=== PATIENT | female | born 1935 | race Caucasian/White ===

== ENCOUNTER 2018-05-12 01:40 | Inpatient (IN) | payer OTHER, MEDICARE ==
[~2018-05-12] VITALS: Ht 162.6 cm; Wt 78.5 kg
[2018-05-12] VITALS (24 sets, daily range): BP systolic 91–142; BP diastolic 42–72
--- NOTE | 2018-05-12 02:00 | NUR ---
81 YO female bib ra from home. patient is alert and oriented, patient is arminian speaking. Per EMS, patient was complaining of shortness of breath, son called 911. patient was ds to er bed, skin warm and dry, resp even and unlabored. patient gowned, placed on director of cardiac cath lab. awaiting orders from provider, will continue to monitor
--- NOTE | 2018-05-12 02:05 | NUR ---
20g right ac iv started, blood sample obtained and sent to lab
[2018-05-12] MEDS ORDERED: FUROSEMIDE 40 MG/4 ML VIAL ONE (02:13)
[2018-05-12] MEDS ORDERED: methylPREDNISolone SOD SUCC 125 MG/2ML VIAL ONE (02:13)
[2018-05-12] MEDS ORDERED: NITROGLYCERIN PACKET 1 GM PACKET ONE ×2 (02:14→02:17)
[2018-05-12] MEDS ORDERED: ASPIRIN 81 MG TAB.CHEW ONE (02:14)
[2018-05-12] MEDS ORDERED: IPRATROPIUM NEB FS 0.5 MG/2.5 ML AMPUL.NEB ONE (02:16)
[2018-05-12] MEDS ORDERED: ALBUTEROL FS 2.5 MG/3 ML VIAL.NEB ONE (02:16)
[2018-05-12 02:17] LABS: BASOPHILS % (AUTO) 0.4 % (0.0-2.0); EOSINOPHILS % (AUTO) 2.1 % (0.0-6.0); HEMATOCRIT 33 % (33-45); HEMOGLOBIN 10.8 g/dL (11.5-14.8); LYMPHOCYTES # (AUTO) 3.5 /CMM (0.8-4.8); LYMPHOCYTES % (AUTO) 34.6 % (20.0-44.0); MEAN CORPUSCULAR HEMOGLOBIN 29 PG (26.0-33.0); MEAN CORPUSCULAR HGB CONC 33 g/dl (31.0-36.0); MEAN CORPUSCULAR VOLUME 88 fL (82-100); MONOCYTES # (AUTO) 0.6 /CMM (0.1-1.30); MONOCYTES % (AUTO) 6.2 % (2.0-12.0); NEUTROPHILS # (AUTO) 5.8 /CMM (1.8-8.9); NEUTROPHILS % (AUTO) 56.7 % (43.0-81.0); PLATELET COUNT (AUTO) 328 /CMM (150-450); RDW COEFFICIENT OF VARIATION 17.5 (11.5-15.0); RED BLOOD CELL COUNT(AUTO) 3.76 MIL/uL (4.0-5.2); WHITE BLOOD COUNT (AUTO) 10.3 K/uL (4.3-11.0)
[2018-05-12] MEDS ORDERED: ATOR40TA PO (02:20)
[2018-05-12] MEDS ORDERED: LINA72CA PO (02:20)
[2018-05-12] MEDS ORDERED: ACET-907 PO (02:20)
[2018-05-12] MEDS ORDERED: CHOL20004 PO (02:20)
[2018-05-12] MEDS ORDERED: GABA-532 PO (02:20)
[2018-05-12] MEDS ORDERED: ASPI-1152 PO (02:20)
[2018-05-12] MEDS ORDERED: CLON0.5T12 PO (02:20)
[2018-05-12] MEDS ORDERED: CLOP75TA15 PO (02:20)
[2018-05-12] MEDS ORDERED: IBUP-1953 PO (02:25)
[2018-05-12] MEDS ORDERED: TEMA15CA PO (02:25)
[2018-05-12] MEDS ORDERED: FAMO20TA8 PO (02:25)
[2018-05-12] MEDS ORDERED: ALBUTEROL FS 2.5 MG/3 ML VIAL.NEB NEB ONE (02:30)
[2018-05-12] MEDS ORDERED: ASPIRIN 81 MG TAB.CHEW PO ONE (02:30)
[2018-05-12] MEDS ORDERED: IPRATROPIUM NEB FS 0.5 MG/2.5 ML AMPUL.NEB NEB ONE (02:30)
[2018-05-12] MEDS ORDERED: methylPREDNISolone SOD SUCC 125 MG/2ML VIAL IV ONE (02:30)
[2018-05-12] MEDS ORDERED: NITROGLYCERIN PACKET 1 GM PACKET TD ONE (02:30)
[2018-05-12] MEDS ORDERED: FUROSEMIDE 40 MG/4 ML VIAL IV ONE ×2 (02:30→11:13)
[2018-05-12 02:35] LABS: CARBON DIOXIDE 19 mmol/L (21-32); CHLORIDE 106 mmol/L (98-107); CREATININE 1.2 mg/dL (0.6-1.3); GLUCOSE 144 mg/dL (74-106); POTASSIUM 3.5 mmol/L (3.5-5.1); SODIUM SERUM 139 mmol/L (136-145); UREA NITROGEN, BLOOD 24 mg/dL (7-18)
[2018-05-12 02:46] LABS: ABG BASE EXCESS -5.5 mmol/L; ABG OXYGEN SATURATION 96.5 % (92.0-98.5); ABG PCO2 29.5 mmHg (35.0-45.0); ABG PH 7.406 (7.350-7.450); ABG PO2 94.8 mmHg (75.0-100.0); AaDO2 242.9 mmHg; COHb 0.1 % (0.5-1.5); MetHb 0.4 % (0.0-1.5); SITE, ABG Right Radial; VENT MODE, BG Simple Mask
[2018-05-12 02:49] LABS: ALANINE AMINOTRANSFERASE 22 U/L (12-78); ALBUMIN 3.2 g/dL (3.4-5.0); ALKALINE PHOSPHATASE 93 U/L (46-116); ASPARTATE AMINOTRANSFERASE 37 U/L (15-37); B-TYPE NATRIURETIC PEPTIDE 3384 PG/ML (0-125); BILIRUBIN,DIRECT 0.1 mg/dL (0.0-0.2); BILIRUBIN,TOTAL 0.4 mg/dL (0.2-1.0); TOTAL PROTEIN, SERUM 8.6 g/dL (6.4-8.2)
[2018-05-12 03:06] LABS: D-DIMER 1.92 mg/L(FEU (0.17-0.50); INR 0.94 (0.87-1.13)
[2018-05-12] MEDS ORDERED: ONDANSETRON HCL/PF - ER 4 MG/2 ML VIAL IV ONE (03:30)
[2018-05-12] MEDS ORDERED: ENOXAPARIN SODIUM 60 MG/0.6 ML DISP.SYRIN SQ ONE (03:30)
[2018-05-12] MEDS ORDERED: HYDROCODONE/APAP 5/325MG 1 EACH TABLET PO ONE (03:30)
[2018-05-12] MEDS ORDERED: ENOXAPARIN SODIUM 80 MG/0.8 ML DISP.SYRIN SQ ONE (04:03)
[2018-05-12] MEDS ORDERED: ONDANSETRON HCL/PF 4 MG/2 ML VIAL ONE (04:03)
[2018-05-12] MEDS ORDERED: HYDROCODONE/APAP 5/325MG 1 EACH TABLET ONE (04:03)
--- NOTE | 2018-05-12 04:22 | NUR ---
TRANSPORTED PT TO [facility] BED WITH EMT WITHOUT INCIDENT
--- NOTE | 2018-05-12 04:24 | NUR ---
SMASHER NOTES RECEIVED PATIENT FROM ER VIA [facility]. PATIENT IS AWAKE, ALERT AND ORIENTED X3 TO NAME, BIRTHDATE, AND SITUATION, ABLE TO VERBALIZE ALL NEEDS. PATIENT IS YAKUT SPEAKING, YAKUT SPEAKING STAFF AT BEDSIDE FOR TRANSLATION. BREATHING EVEN AND NONLABORED, TOLERATING O2 VIA NC @ 4LPM WELL, NO S/S OF RESPIRATORY DISTRESS NOTED. PATIENT DENIES ANY CHEST PAIN AT THIS TIME, SYMPTOMS HAVE RESOLVED AFTER MEDICATION RECEIVED FROM ER. PATIENT PLACED ON TELEMETRY MONITORING, SHOWING SINUS RHYTHM WITH 1ST DEGREE AV BLOCK, HR = 72 AT THIS TIME. IV SITE PATENT AND INTACT, FLUSHED WITH NS, FREE FROM ANY S/S OF INFILTRATION OR PHLEBITIS. SKIN ISSUES PHOTOGRAPHED AND DOCUMENTED PER PROTOCOL. TOBIN CATHETER DRAINING CLEAR YELLOW URINE TO GRAVITY. PLAN OF CARE DISCUSSED WITH THE PATIENT, WHO VERBALIZES UNDERSTANDING REGARDING THE PLAN OF CARE. CALL LIGHT LEFT WITHIN EASY REACH, BED IN LOWEST AND LOCKED POSITION. WILL CONTINUE TO CLOSELY MONITOR
[2018-05-12] MEDS ORDERED: ACETAMINOPHEN 325 MG TABLET PO PRN (04:30)
[2018-05-12] MEDS ORDERED: ONDANSETRON HCL/PF 4 MG/2 ML VIAL IVP PRN (04:30)
[2018-05-12] MEDS ORDERED: HYDROCODONE/APAP 5/325MG 1 EACH TABLET PO PRN (04:30)
[2018-05-12] MEDS ORDERED: ZOLPIDEM TARTRATE 5 MG TABLET PO PRN (04:30)
[2018-05-12] MEDS ORDERED: Z GUARD REMEDY 2 OZ OINT TP PRN (04:30)
[2018-05-12] MEDS ORDERED: MAGNESIUM HYDROXIDE 30 ML UDC PO PRN (04:30)
[2018-05-12] MEDS ORDERED: DEXTROSE 50%-WATER 50 ML DISP.SYRIN IV PRN (04:30)
--- NOTE | 2018-05-12 07:00 | NUR ---
RN NOTES RECEIVED LYING IN BED, HOB AT 30 DEGREE, AWAKE AND ORIENTED, NO COMPLAINTS OF PAIN, NOT ON ANY FORM OF DISTRESS, ON NASAL CANNULA AT 4 LPM, NO SOB NOTED, SINUS RHYTHM ON TELE, HR ON 80S, GAUGE 20 IV LINE ON THE RIGHT AC: INTACT, TOBIN CATHETER DRAINING WELL VIA GRAVITY TO CLEAR URINE, CALL LIGHT WITHIN EASY REACH, BED IS LOCKED AND AT LOWEST POSITION, WILL CONTINUE TO MONITOR
[2018-05-12] MEDS: BLOOD SUGAR DIAGNOSTIC 1 EACH STRIP IN SCH ×4 (08:22→21:29)
[2018-05-12] MEDS: ENOXAPARIN SODIUM 80 MG/0.8 ML DISP.SYRIN SQ SCH ×2 (08:24→21:14)
[2018-05-12] MEDS: INSULIN REGULAR, HUMAN 100 UNIT/ML 3 ML VIAL SQ PRN ×2 (08:24→21:30)
[2018-05-12 08:47] LABS: BASOPHILS % (AUTO) 0.1 % (0.0-2.0); EOSINOPHILS % (AUTO) 0.2 % (0.0-6.0); HEMATOCRIT 31 % (33-45); HEMOGLOBIN 10.2 g/dL (11.5-14.8); LYMPHOCYTES # (AUTO) 0.6 /CMM (0.8-4.8); LYMPHOCYTES % (AUTO) 7.4 % (20.0-44.0); MEAN CORPUSCULAR HEMOGLOBIN 28 PG (26.0-33.0); MEAN CORPUSCULAR HGB CONC 32 g/dl (31.0-36.0); MEAN CORPUSCULAR VOLUME 87 fL (82-100); MONOCYTES # (AUTO) 0.1 /CMM (0.1-1.30); MONOCYTES % (AUTO) 1.3 % (2.0-12.0); NEUTROPHILS # (AUTO) 6.9 /CMM (1.8-8.9); PLATELET COUNT (AUTO) 292 /CMM (150-450); RDW COEFFICIENT OF VARIATION 17.1 (11.5-15.0); RED BLOOD CELL COUNT(AUTO) 3.58 MIL/uL (4.0-5.2); WHITE BLOOD COUNT (AUTO) 7.6 K/uL (4.3-11.0)
[2018-05-12 09:03] LABS: CALCIUM, SERUM 8.6 mg/dL (8.5-10.1); CARBON DIOXIDE 23 mmol/L (21-32); CHLORIDE 106 mmol/L (98-107); CREATININE 1.3 mg/dL (0.6-1.3); GLUCOSE 162 mg/dL (74-106); POTASSIUM 3.7 mmol/L (3.5-5.1); SODIUM SERUM 141 mmol/L (136-145); UREA NITROGEN, BLOOD 23 mg/dL (7-18)
--- NOTE | 2018-05-12 10:17 | NUR ---
RN NOTES DR DONAHUE NOTIFED REGARDING TROPONIN 30.95 . CONTINUE TO MONITOR .
[2018-05-12] MEDS ORDERED: METOPROLOL TARTRATE INJ 5 MG/5 ML AMPUL IVP ONE (11:00)
[2018-05-12] MEDS: METOPROLOL TARTRATE 50 MG TABLET PO SCH ×3 (11:27→23:58)
[2018-05-12] MEDS: ATORVASTATIN 40 MG TABLET PO SCH (11:29)
[2018-05-12 11:54] LABS: CHOLESTEROL 126 mg/dL (<200); HDL CHOLESTEROL 70 mg/dL (40-60); LDL 50 mg/dL (0-99); TRIGLYCERIDES 42 mg/dL (30-150)
--- NOTE | 2018-05-12 12:20 | NUR ---
RN NOTES BG 154 , PT IS NPO FOR HEART CATH ,
--- NOTE | 2018-05-12 17:43 | NUR ---
RN NOTES DR CURTIS NOTIFED REGARDING TROP =[phone] , CONTINUE TO MONITOR .
[2018-05-12] MEDS ORDERED: NTG 50 MG/D5W250 ML BOTTL 250 ML IV PRN (18:30)
--- NOTE | 2018-05-12 18:35 | NUR ---
RN NOTES PT STILL HAVING CHEST PAIN 03/19 , DR DONAHUE AND SARA NOTIFIED , PT TRANSFER TO ICU PER MD ORDER
--- NOTE | 2018-05-12 19:00 | NUR ---
RN NOTE 183: Received patient from [facility], for Nitro drip and was with c/o 6/10 chest pain. Verbalized very little chest pain right now per son. Understand very little Greek, Togolese speaking, son at bedside for interpretation. Started on 3mic of Nitro, SBP 100's. 1844: Started on Nitro drip 3mcg, removed Nitro patch. 1899: Endorsed to Melva DEWEY for WILDA, placed another PIV on LFA g20. Still with minimal CP. Was just started on Nitro drip.
--- NOTE | 2018-05-12 19:30 | NUR ---
POSTAL SORTING OFFICER: RECEIVED PT. ALERT AND AWAKE. ABLE TO TALK AND MAKE NEEDS KNOWN IN BARBADIAN AND LITTLE MALTESE. SON AT BEDSIDE TO INTERPRET. ON 4L 02 VIA NC WT NO ACUTE DISTRESS. NO C/O CHEST PAIN AT THIS TIME. CONTINUE ON NITRO DRIP AT 3MCG/MIN WT NO S/S OF IV INFILTRATION. AFEBRILE. SR WT FIRST DEGREE HB ON DIRECTOR TRADING. SBP IN LOW 100s. F/C PATENT AND INTACT DRAINING YELLOW COLORED URINE TO GRAVITY. HOB AT 35 DEGREES. SAFETY PRECAUTION NOTED. WILL CONTINUE TO MONITOR.
--- NOTE | 2018-05-12 23:58 | NUR ---
SHEETROCK APPLICATOR: LOPRESSOR HELD AT THIS TIME FOR SBP LESS THAN 105. STILL ON NITRO DRIP AT 3MCG/MIN WT NO C/O CHEST PAIN. WILL CONTINUE TO MONITOR.
[2018-05-13] VITALS (56 sets, daily range): BP systolic 74–137; BP diastolic 40–83
--- NOTE | 2018-05-13 02:15 | NUR ---
LINTER DRIER OPERATOR: NOTED WT 8 BEATS OF V-TACH. CHARGE NURSE REMEDIOS MADE AWARE. REMAINED ASYMPTOMATIC. STILL ON NITRO DRIP AT 3MCG/MIN WT NO C/O PAIN. WILL CONTINUE TO MONITOR.
[2018-05-13 04:22] LABS: BASOPHILS % (AUTO) 0.1 % (0.0-2.0); HEMATOCRIT 29 % (33-45); HEMOGLOBIN 9.3 g/dL (11.5-14.8); LYMPHOCYTES # (AUTO) 1.3 /CMM (0.8-4.8); LYMPHOCYTES % (AUTO) 11.6 % (20.0-44.0); MEAN CORPUSCULAR HEMOGLOBIN 28 PG (26.0-33.0); MEAN CORPUSCULAR HGB CONC 32 g/dl (31.0-36.0); MEAN CORPUSCULAR VOLUME 88 fL (82-100); MONOCYTES # (AUTO) 0.8 /CMM (0.1-1.30); MONOCYTES % (AUTO) 7.1 % (2.0-12.0); NEUTROPHILS # (AUTO) 9.3 /CMM (1.8-8.9); NEUTROPHILS % (AUTO) 81.2 % (43.0-81.0); PLATELET COUNT (AUTO) 273 /CMM (150-450); RDW COEFFICIENT OF VARIATION 17.2 (11.5-15.0); RED BLOOD CELL COUNT(AUTO) 3.27 MIL/uL (4.0-5.2); WHITE BLOOD COUNT (AUTO) 11.5 K/uL (4.3-11.0)
[2018-05-13 04:47] LABS: TROPONIN I 24.885 ng/mL (0.00-0.056)
[2018-05-13 04:57] LABS: ALANINE AMINOTRANSFERASE 34 U/L (12-78); ALBUMIN 2.8 g/dL (3.4-5.0); ALKALINE PHOSPHATASE 71 U/L (46-116); ASPARTATE AMINOTRANSFERASE 133 U/L (15-37); BILIRUBIN,TOTAL 0.3 mg/dL (0.2-1.0); CALCIUM, SERUM 8.1 mg/dL (8.5-10.1); CARBON DIOXIDE 24 mmol/L (21-32); CHLORIDE 105 mmol/L (98-107); CREATININE 1.4 mg/dL (0.6-1.3); GLUCOSE 129 mg/dL (74-106); MAGNESIUM 1.9 mg/dL (1.8-2.4); PHOSPHORUS 4.3 mg/dL (2.5-4.9); SODIUM SERUM 137 mmol/L (136-145); TOTAL PROTEIN, SERUM 7.6 g/dL (6.4-8.2); UREA NITROGEN, BLOOD 34 mg/dL (7-18)
[2018-05-13] MEDS: METOPROLOL TARTRATE 50 MG TABLET PO SCH (05:56)
--- NOTE | 2018-05-13 06:50 | NUR ---
LABORATORY MONITOR: SEEN AND EXAMINED BY DR. DONAHUE AND MADE HIM AWARE OF V-TACH EPISODE (8-BEATS) AT 0215. NOW ON NITRO DRIP AT 10MCG/MIN FOR C/O CHEST PAIN 8 AT 0600. MD PHIPPS ORDER FOR EKG STAT. NOTED AND CARRIED OUT. PT. REMAINED ALERT AND AWAKE. NOW CHEST PAIN LEVEL 3/10. SAFETY PRECAUTION NOTED AT ALL TIMES.
--- NOTE | 2018-05-13 07:15 | NUR ---
PROBATION AGENT NOTES RECEIVED PATIENT AOX2 VIETNAMESE / VENEZUELAN SPEAKING , NOT IN ACUTE DISTRESS , RESPIRATIONS EVEN AND UNLABORED WITH SPO2 OF 100% VIA 4LPM NC , SR WITH 1ST DEGREE AV BLOCK , COMPLAINS OF CHEST PAIN 5/10 ON NITROGLYCERIN DRIP @ 10MCG/MIN INFUSING @ L FA #20 PATENT AND INTACT , RAC # 20 PATENT AND INTACT SL , FC DRAINING VIA GRAVITY , ALL NEEDS ATTENDED , BED ON LOW AND LOCKED POSITION , SIDE RAILS X2 ,CALL LIGHT WITHIN REACH , HOB @ 35 ,WILL CONTINUE TO MONITOR
[2018-05-13] MEDS: BLOOD SUGAR DIAGNOSTIC 1 EACH STRIP IN SCH ×2 (07:33→11:20)
[2018-05-13 07:52] LABS: THYROID STIMULATING HORMONE 0.5 uIU/mL (0.358-3.74)
[2018-05-13] MEDS: ATORVASTATIN 40 MG TABLET PO SCH (09:26)
[2018-05-13] MEDS: ENOXAPARIN SODIUM 80 MG/0.8 ML DISP.SYRIN SQ SCH (09:26)
--- NOTE | 2018-05-13 09:46 | NUR ---
GENERAL LABOR FORKLIFT OPERATOR NOTES CALLED [facility] , SPOKE WITH ADMITTING , F/U PT TRANSFER M PER ADMITTING PT HAS A BED @ [facility] 2ND FLOOR ROOM 200-4 , , CALLED [facility]NA[facility] TO NOTIFY , KENY WILL CALL DR DONAHUE FOR VERIFICATION .
--- NOTE | 2018-05-13 10:05 | NUR ---
SCRUM MASTER NOTES SEEN AND EVALUATED BY DR BUNCH , DISCUSSED LATEST V/S , URINE OUTPUT , PT STILL ON NITROGLYCERIN DRIP @ 6MCG/MIN , PENDING TRANSFER FOR CARDIAC CATH , VERIFIED EKG ORDER DR DONAHUE ORDER ONE THIS MORNING @ 0700 , SHOWED EKG RESULT , AWARE
--- NOTE | 2018-05-13 11:49 | NUR ---
ANIMAL DAMAGE CONTROL AGENT NOTES REPORT GIVEN TO RENEA @ [phone] FOR PT TRANSFER , ALL QUESTIONS ANSWERED ,
--- NOTE | 2018-05-13 11:52 | NUR ---
CNC TECHNICIAN NOTES CALLED [facility] , PAGED JERALD VICENTE TO NOTIFY [facility] , ASKING FOR DC ORDER , AWAITING FOR CALL BACK
[2018-05-13] MEDS ORDERED: METOPROLOL TARTRATE 50 MG TABLET PO SCH (12:00)
--- NOTE | 2018-05-13 12:18 | NUR ---
VISUAL SPECIALIST NOTES BELONGING LIST REVIEWED WITH THE SON , SON AGREES AND SIGNED .
--- NOTE | 2018-05-13 13:30 | NUR ---
SENIOR EDITOR NOTES NO COMPLAINS OF CHEST PAIN AT THIS TIME , PT IS COMFORTABLE RESTING AT BED , WILL CONTINUE TO MONITOR
--- NOTE | 2018-05-13 13:39 | NUR ---
FRAMER NOTES REPORT GIVEN TO EMS AND TO ELISSA MCLEOD RN FOR PT TRANSFER PT STABLE AT THIS TIME , NOT IN ACUTE DISTRESS , RESPIRATIONS EVEN AND UNLABORED WITH SPO2 OF 100% VIA 4LPM NC , AOX3 [place] SRI LANK[place] SPEAKING , SR 78 WITH 1ST DEGREE AV BLOCK , FC DRAINING VIA GRAVITY , IV OF R AC # 20 PATENT AND INTACT WITH NITROGLYCERIN @ 6MCG/MIN INFUSING WELL , L FA # 20 ACCIDENTALLY REMOVED BY THE PT , OFFERED TO INSERT NEW IV LINE BUT PT REFUSES , EXPLAINED THE BENEFITS OF HAVING ANOTHER IV LINE PT STILL REFUSES , SKIN ASSESSMENT DONE NO NEW WOUNDS NOTED , TOOK PICTURES AND PLACED IN THE CHART , EXIT CARE SIGNED EXPLAINED TO SON , ALL NEEDS ATTENDED , VSS ,
[2018-05-13] MEDS ORDERED: ENOX80DI SQ (14:02)
[2018-05-13 17:44] LABS: APPEARANCE,URINE CLOUDY (CLEAR); BILIRUBIN,URINE NEGATIVE (NEGATIVE); BLOOD, URINE 2+ Ery/uL (NEGATIVE); COLOR,URINE YELLOW (YELLOW); KETONES,URINE NEGATIVE (NEGATIVE); LEUKOCYTE ESTERASE ,URINE NEGATIVE (NEGATIVE); NITRITE, URINE NEGATIVE (NEGATIVE); PROTEIN,URINE NEGATIVE (NEGATIVE); UGLUCOSE NEGATIVE (NEGATIVE); UROBILINOGEN,URINE 0.2 EU/dL (0.2)
[2018-05-13 18:14] LABS: CREATININE, URINE 208.1 MG/DL (30.0-125.0)
[2018-05-13 18:16] LABS: BACTERIA,URINE Few /HPF (None Seen); SQUAMOUS EPITHELIAL CELL,UR Few /HPF (None Seen); URINE AMORPHOUS URATE Many /HPF (None Seen); WBC,URINE 0-2 /HPF (0-3)
[2018-05-13 18:46] LABS: EOSINOPHIL,URINE None Seen
== END 2018-05-13 13:40 | disposition short-term general hospital (02) | DRG 190 ==
LOC: EDBD 01:42 → ER 01:42 → TELE-TD 04:03 → TELE1 10:03 → ICU 18:26
PROVIDERS: ADMIT Nurse Practitioner Acute Care; ATTEND Nurse Practitioner Acute Care
DX: I21.4 Non-ST elevation (NSTEMI) myocardial infarction (principal); N17.0 Acute kidney failure with tubular necrosis; I50.23 Acute on chronic systolic (congestive) heart failure; E78.5 Hyperlipidemia, unspecified; D63.8 Anemia in other chronic diseases classified elsewhere; E11.9 Type 2 diabetes mellitus without complications; I11.0 Hypertensive heart disease with heart failure; Z86.73 Personal history of transient ischemic attack (TIA), and cerebral infarction without residual deficits; F41.9 Anxiety disorder, unspecified; K21.9 Gastro-esophageal reflux disease without esophagitis; M19.90 Unspecified osteoarthritis, unspecified site; Z74.01 Bed confinement status; K59.09 Other constipation
CPT/HCPCS: 36415; 36600; 71045-TC; 80048-TC; 80053-TC; 80061-TC; 80076-TC; 81000-TC; 82570-TC; 82728-TC; 82803-TC; 82962-TC; 83540-TC; 83735-TC; 83880; 84100-TC; 84155-TC; 84300-TC; 84439-TC; 84443-TC; 84484-TC; 85025-TC; 85378-TC; 85730-TC; 87081-TC; 93307-TC; 93970-TC; A4606; J1650; J1815; J1940; J2405; J2930; J3490; Z7610